=== PATIENT | female | born 1965 | race Caucasian/White ===

== ENCOUNTER 2017-07-01 08:23 | Observation (INO) | payer OTHER ==
[~2017-07-01 08:23] MED LIST: Bacitracin IV* 50,000 UNITS INJ ONE; Buffered Lidocaine 0.9% SYRIN* 5 ML/SYR SYRINGE INTRADERM ONE; Famotidine IV* 10 MG/ML 2 ML (20 mg) IV ONE; Lidocaine 1.5% EPI 1:200,000* 30 ML SDV ONE; Metoclopramide TAB* 10 MG PO ONE; Thrombin 5,000 UNITS* 1 APPLIC KIT - topical use - TOPICAL ONE
[2017-07-01] MEDS ORDERED: Buffered Lidocaine 0.9% SYRIN* 5 ML/SYR SYRINGE ONE (08:33)
[2017-07-01] MEDS ORDERED: Metoclopramide TAB* 10 MG ONE (08:33)
[2017-07-01] MEDS ORDERED: Famotidine IV* 10 MG/ML 2 ML (20 mg) ONE (08:33)
[2017-07-01] MEDS ORDERED: Dexamethasone IV* 4 MG/ML 1 ML (4 MG) ONE (09:26)
[2017-07-01] MEDS ORDERED: Cisatracurium* 2 MG/ML MDV 5 ML ONE (09:26)
[2017-07-01] MEDS ORDERED: Propofol* 10 MG/ML 20 ML BTL IV PUSH ONE (09:26)
[2017-07-01] MEDS ORDERED: Ondansetron INJ* 2 MG/ML VIAL ONE (09:26)
[2017-07-01] MEDS ORDERED: Lidocaine 2% PF * 5 ML VIAL ONE (09:26)
[2017-07-01] MEDS ORDERED: fentaNYL* 50 MCG/ML 2 ML VIAL (100 MCG VIAL) ONE ×2 (09:26→12:15)
[2017-07-01] MEDS ORDERED: Midazolam* 1 MG/ML 5 ML VIAL (5 MG) ONE (09:27)
[2017-07-01] MEDS ORDERED: KETAMINE HCL* 50 MG/ML 10 ML VIAL ONE (09:27)
[2017-07-01] MEDS ORDERED: Phenylephrine IV* 40 MCG/ML 10 ML SYRINGE ONE (10:55)
[2017-07-01] MEDS ORDERED: Ondansetron INJ* 2 MG/ML VIAL IV PRN ×2 (11:27→11:48)
[2017-07-01] MEDS ORDERED: Acetaminophen TAB* 325 MG PO PRN (11:48)
[2017-07-01] MEDS ORDERED: Zolpidem TAB* 10 MG PO PRN (11:51)
[2017-07-01] MEDS ORDERED: Benzocaine/Menthol LOZ* 1 LOZENGE PO PRN (11:51)
[2017-07-01] MEDS ORDERED: Nicotine Inhaler* 10 MG AMP INH PRN (11:51)
[2017-07-01] MEDS ORDERED: Omeprazole CAP* 20 MG PO PRN (11:51)
[2017-07-01] MEDS ORDERED: Mouth Piece, Nicotine* 1 EACH CARTRIDGE INH PRN (11:51)
[2017-07-01] MEDS ORDERED: Labetalol IV* 5 MG/ML 20 ML VIAL ONE (11:59)
[2017-07-01] MEDS ORDERED: HYDROmorphone* 1 MG/ML 1 ML SYR ONE (12:15)
[2017-07-01] MEDS: fentaNYL* 50 MCG/ML 2 ML VIAL (100 MCG VIAL) IV PRN ×2 (12:16→12:42)
[2017-07-01] MEDS: HYDROmorphone* 1 MG/ML 1 ML SYR IV PRN ×2 (12:22→12:42)
--- NOTE | 2017-07-01 12:25 | RAD ---
HISTORY: Anterior cervical fusion COMPARISONS: Outside MRI dated November 26, 2016 VIEWS: 3, Limited portable crosstable intraoperative views of the cervical spine for localization during spinal surgery FINDINGS: The initial image at 11:00 AM demonstrates a new left-sided C6-C7. A subsequent image 11:05 AM demonstrates a needle within the intervertebral disc space of C5-C6. A subsequent image 11:47 AM demonstrates an anterior cervical fusion plate and screws at C5 and C6 with intervertebral graft material at C5-C6. IMPRESSION: LIMITED VIEWS OF THE CERVICAL SPINE FOR LOCALIZATION DURING SPINAL SURGERY
[2017-07-01] MEDS ORDERED: HYDROcodone/ACETAMIN 5-325 MG* 1 TAB ONE (13:26)
[2017-07-01] MEDS ORDERED: Benzocaine/Menthol LOZ* 1 LOZENGE ONE (13:26)
[2017-07-01] MEDS ORDERED: Nicotine PATCH 21 MG/24 HR* PATCH ONE (13:26)
[2017-07-01] MEDS: HYDROcodone/ACETAMIN 5-325 MG* 1 TAB PO PRN ×3 (13:27→21:45)
[2017-07-01] MEDS: Nicotine PATCH 21 MG/24 HR* PATCH TRANSDERM SCH (13:27)
[2017-07-01] MEDS ORDERED: Morphine INJ* 2 MG/ML 1 ML SYRINGE ONE (15:39)
[2017-07-01] MEDS ORDERED: Morphine INJ* 2 MG/ML 1 ML SYRINGE IV ONE (16:00)
[2017-07-01] MEDS ORDERED: LORazepam TAB(*) 0.5 MG PO PRN (18:17)
[2017-07-01] MEDS ORDERED: LORazepam TAB(*) 0.5 MG ONE (18:22)
[2017-07-01] MEDS: Morphine INJ* 2 MG/ML 1 ML SYRINGE IV PRN (19:46)
[2017-07-01] MEDS: Metoprolol Tartrate TAB* 50 mg PO SCH (19:49)
[2017-07-01] MEDS ORDERED: Nicotine Patch Removal NOTE PATCH OFF SCH (21:00)
[2017-07-02] MEDS: Morphine INJ* 2 MG/ML 1 ML SYRINGE IV PRN (00:15)
[2017-07-02] MEDS: HYDROcodone/ACETAMIN 5-325 MG* 1 TAB PO PRN ×3 (02:46→13:02)
--- NOTE | 2017-07-02 07:42 | PN ---
Progress Note - Progress Note Date of Service: 07/02/17 SOAP: Subjective: []POD#1 C/O neck pain Drain fell out Objective: [] Neuro intact Neck soft Assessment: []Satis post op course Plan: []D/C today D/C instructions given
[2017-07-02] MEDS: Nicotine PATCH 21 MG/24 HR* PATCH TRANSDERM SCH (08:50)
[2017-07-02] MEDS: Metoprolol Tartrate TAB* 50 mg PO SCH (08:50)
[2017-07-02 11:28] VITALS: BP 127/67
--- NOTE | 2017-07-03 03:08 | DS ---
DISCHARGE SUMMARY: DATE OF ADMISSION: 07/01/17 DATE OF DISCHARGE: 07/02/17 ATTENDING PHYSICIAN: Dr. Bingham * (DICTATED BY TARIQ PATEL) DISCHARGE DIAGNOSES: 1. Cervical disk disorder at C5-6 with myelopathy. 2. Hypertension. 3. Hyperlipidemia. SPECIAL PROCEDURES: Anterior cervical diskectomy and fusion, C5-6 with anterior instrumentation. HOSPITAL COURSE: This 52-year-old female was seen in office with symptoms of cervical myelopathy consistent with a MRI findings of herniated disk at C5-6. She has failed to improve with several years of conservative treatment and was again treated with medication. She presented again several months later without improvement and surgical treatment was then discussed. She was admitted at this time for elective surgical therapy. On the day of admission, she was taken to surgery where under general anesthesia, an anterior cervical diskectomy and fusion at C5-6 with anterior instrumentation operation was carried out. Postoperatively, she was having a difficult time controlling pain with oral pain medication and therefore required IV pain medications for optimal management. The JACOB wound drain fell out on its own overnight and was therefore remained out. She was eating soft foods without difficulty and was not having any trouble swallowing. She was ambulating independently. She was drinking and voiding without difficulty or pain as well. On the first postoperative day, she was discharged home to the care of her family. DISCHARGE INSTRUCTIONS: Wound care and activity level were discussed with the patient and information was provided. FOLLOWUP: She will be seen in office in approximately 2 weeks for followup. DISCHARGE MEDICATIONS: Lomax 5/325 mg 2 tabs by mouth every 4 hours as needed for pain. TARIQ PATEL [id number]/[facility] #: [id number] MTDD
--- NOTE | 2017-07-04 02:38 | OP ---
OPERATIVE REPORT: DATE OF OPERATION: 07/01/17 DATE OF : 67 SURGEON: Cameron Bingham MD ANESTHESIA: General. PRE-OP DIAGNOSIS: Cervical spondylosis with myelopathy, C5-6. POST-OP DIAGNOSIS: Cervical spondylosis with myelopathy, C5-6. OPERATIVE PROCEDURE: Anterior cervical diskectomy and fusion C5-6 with placement of biomechanical f usion device and anterior instrumentation. DESCRIPTION OF PROCEDURE: After satisfactory general anesthesia was obtained, the patient was place d on the operating room table in a supine position with the chest supported on the horseshoe headres t and the neck slightly extended. The anterior aspect of the spine was clipped, prepped and draped in a sterile manner for anterior cervical exposure and a automobile and property underwriter x-ray taken to enable placement of an incision over the C5-6 level. This incision started at the midline and extended to the right side to a distance of 3 cm. This incision was infiltrated with 1% Xylocaine with epinephrine, after whic h it was turned down sharply to the subcutaneous tissues. A superiorly and inferiorly based flap wa s then fashioned and the platysma muscle divided along the direction of its fibers. Utilizing a com bination of sharp and blunt dissection, a dissection plane was carried out between the sternocleidom astoid and strap muscles down to the anterior aspect of the spine. A second x-ray was taken verifyi ng the C5-6 level exposure after which the attachment of longus colli muscle was taken down. Self-r etaining retractor was placed to facilitate exposure. The anterior two-thirds of disk material was then removed with a combination of the Midas Bib drill, angled curettes, and pituitary rongeurs. Ca spar distractor pins were then placed in the C5 and C6 vertebral bodies and gentle disk space distra ction applied. At this point of the procedure, the operating microscope was brought into the field, and the remainder of the procedure was done under microscopic visualization. The patient was found to have significant spondylosis at this level and the spur was decompressed utilizing a combination of the Midas Bib drill, 1 and 2 mm Kerrison rongeurs. The dissection was carried back until normal dura was encountered. At the conclusion of the dissection, both C6 nerve roots were free in their course. After assuring adequate hemostasis, wound was thoroughly irrigated after which a 7 mm PEEK fusion device filled with bony matrix was slightly countersunk. A [employer] ZEVO plate was then lupe ected to span from C5 to C6 and was secured into position with 14-mm self- drilling screws. A post- construct x-ray showed good graft and screw placement. The wound was then thoroughly irrigated, afte r which a drain was placed in the prevertebral space and tunneled out toward the right side. The gonzalez bcutaneous tissues were then reapproximated with 3-0 Vicryl and the skin closed with Steri- Strips. The estimated blood loss was less than 50 cc and the final sponge, padding, and needle counts were correct. The patient was taken to the recovery room, extubated, and in stable condition. [id number]/[facility] #: [id number]
== END 2017-07-02 14:10 | disposition home or self-care (01) ==
LOC: OR 08:23 → SSU 13:22
PROVIDERS: ADMIT Neurological Surgery; ATTEND Neurological Surgery
DX: M47.12 Other spondylosis with myelopathy, cervical region (principal); M50.022 Cervical disc disorder at C5-C6 level with myelopathy; F17.200 Nicotine dependence, unspecified, uncomplicated; I10 Essential (primary) hypertension; Z86.718 Personal history of other venous thrombosis and embolism; R06.02 Shortness of breath; M79.7 Fibromyalgia; E78.5 Hyperlipidemia, unspecified
CPT/HCPCS: 72020; 96374; 96375; 96376; A9270-GY; C1713; C1776; C9359; G0378; J1100; J1170; J2250; J2270; J2405; J2704; J3010